=== PATIENT | female | born 1950 | race Caucasian/White ===

== ENCOUNTER → 2024-04-30 | Outpatient (CLI) | payer MEDICARE, MEDICAID, SELFPAY ==
--- NOTE | 2024-04-30 11:56 | US_ITS ---
STUDY: THYROID ULTRASOUND REASON FOR EXAM: Female, 73 years old. enlarged thyroid TECHNIQUE: Ultrasound evaluation of the thyroid was performed with real-time and static busch-scale imaging. COMPARISON: None. FINDINGS: RIGHT LOBE: The right lobe of the thyroid gland measures 4.1 x 1.8 x 2.0 cm. There is a heterogeneous echotexture. Nodule 1:15 x 12 x 12 mm solid isoechoic wider than tall smoothly marginated nodule with no echogenic foci (TR 3) in the lateral right lobe and follow-up ultrasound is recommended in 1 year. Nodule 2:9 x 9 x 6 mm solid hypoechoic taller than wide ill-defined marginated nodule with no echogenic foci (TR 5) in the medial right lobe and follow-up ultrasound is recommended in 1 year. Nodule 3:10 x 7 x 5 mm mixed cystic and solid isoechoic wire than tall smoothly marginated nodule and no echogenic foci (TR 2) in the posterior right lobe consistent with an adenoma or colloid cyst. LEFT LOBE: The left lobe of the thyroid gland measures 3.6 x 1.3 x 1.8 cm. There is a heterogeneous echotexture. Multiple small (less than 5 mm) adenomas or colloid cyst. ISTHMUS: The isthmus measures 2 mm thick. . The regional lymph nodes are normal. US/Thyroid IMPRESSION: Multinodular thyroid gland and follow-up ultrasound is recommended in 1 year. Electronically Signed: Ben Knowles MD at 10:32 EDT ,
[2024-04-30 14:00] LABS: PTHIN 91.5 pg/mL (18.4-80.1)
[2024-04-30 14:02] LABS: Vitamin D,25 Hydroxy 29.6 ng/mL
[2024-04-30 14:07] LABS: AST(SGOT) 40 U/L (15-37); Alanine Aminotransfer ALT/SGPT 82 U/L (13-56); Albumin, Serum 3.6 g/dL (3.2-5.0); Alkaline Phosphatase 95 U/L (45-117); Anion Gap 7 (5-15); BUN 10 mg/dL (7-18); BUN/Creat Ratio 11.9 RATIO (10-20); Calcium,Total 8.7 mg/dL (8.5-10.1); Chloride 106 mmol/L (98-107); Creatinine, Serum 0.84 mg/dL (0.55-1.02); EST Glomerular Filtration Rate 71 mL/min (>60); Est Glom Filt Rate - Afr Amer 86 mL/min (>60); Globulin 3.5 g/dL (2.2-4.2); Glucose 86 mg/dL (74-106); Potassium 3.4 mmol/L (3.5-5.1); Protein, Total 7.1 g/dL (6.4-8.2); Sodium Level 139 mmol/L (136-145)
[2024-05-02 12:09] LABS: Thyroid Peroxidase AB < 9 IU/mL (0-34)
== END | disposition home or self-care (01) ==
LOC: US 11:50
PROVIDERS: PCP Internal Medicine; Referring Provider Nurse Practitioner Family; Visit Provider Nurse Practitioner Family
DX: E83.52 Hypercalcemia (principal); R53.83 Other fatigue; E55.9 Vitamin D deficiency, unspecified; E04.9 Nontoxic goiter, unspecified
CPT/HCPCS: 36415; 76536; 80053; 82306; 83970; 84443; 86376

== ENCOUNTER → 2024-06-14 | Outpatient (CLI) | payer MEDICARE, SELFPAY ==
--- NOTE | 2024-06-14 09:14 | BD_ITS ---
STUDY: DUAL ENERGY X-RAY ABSORPTIOMETRY / DXA REASON FOR EXAM: Female, 74 years old. Screening TECHNIQUE: Bone Mineral Density (BMD) measurements of lumbar spine and bilateral hips were obtained. COMPARISON: None. FINDINGS: Lumbar Spine (L1-L4): g/cm2 (1.310) / T-score (2.5) / Z-score (4.8) Findings are suggestive of normal bone density with a low fracture risk. Left Femur Total: g/cm2 (0.910) / T-score (-0.3) / Z-score (1.4) Left Femoral Neck: g/cm2 (0.698) / T-score (-1.4) / Z-score (0.6) Right Femur Total: g/cm2 (0.911) / T-score (-0.3) / Z-score (1.4) Right Femoral Neck: g/cm2 (0.694) / T-score (-1.4) / Z-score (0.6) BD/Dexa Bone Density Study IMPRESSION: The patient is considered osteopenic as outlined below according to World Andres Organization (WHO) criteria with a low fracture risk. Reference Information: The T-score is the number of standard deviations above or below the standard which is normal for young adults at their peak bone mineral density. The World Health Organization (WHO) interprets the T-scores as follows: Above -1 Normal bone density Between -1 and -2.5 Osteopenia Equal to / or below -2.5 Osteoporosis As a practical clinical guideline, osteopenia may be graded as follows: Mild -1 through -1.5 Moderate -1.6 through -2.0 Severe -2.1 through -2.4 The Z-score is the number of standard deviations above or below age-matched controls. A Z-score of less than -1.5 would be considered abnormal. References: 1. NIH Osteoporosis and Related Bone Diseases www osteo.org 2. International Society for Clinical Densitometry www iscd.org 3. National Osteoporosis Foundation www nof.org Electronically Signed: Nam Toribio MD at 12:50 EST ,
== END | disposition home or self-care (01) ==
LOC: OPBD 09:14
PROVIDERS: PCP Internal Medicine; Referring Provider Nurse Practitioner Family; Visit Provider Nurse Practitioner Family
DX: M81.0 Age-related osteoporosis without current pathological fracture (principal); E83.52 Hypercalcemia
CPT/HCPCS: 77080